=== PATIENT | female | born 1995 | race Caucasian/White ===

== ENCOUNTER 2017-12-19 05:46 | Emergency (ER) | payer OTHER ==
[~2017-12-19] VITALS: Ht 162.6 cm; Wt 57.8 kg
--- NOTE | 2017-12-19 06:23 | ED.ADGEN ---
Past History Past Medical History: No Pertinent History Past Medical History Patient on control. Mirena IUD Past Surgical History: No Surgical History Smoking: Non-smoker Alcohol Use: None Drug Use: None Adult General Chief Complaint Chief Complaint Post tonsillectomy bleeding HPI HPI The patient had tonsillectomy in [place] 12/08/[address] Veronica. Since then she was well until 5AM when she had onset of posterior throat bleeding. She denies hematemesis, though she's been spitting up a lot of blood. No light headedness or or SOB. Review of Systems Review of Systems Constitutional: Denies fever or chills Eyes: Denies change in visual acuity, redness, or eye pain HENT: Denies nasal congestion or sore throat. With posterior pharyngeal bleeding , spitting up blood. no sore throat. no stridor or breathing difficulty. Respiratory: Denies cough or shortness of breath Cardiovascular: Denies chest pain or palpitations GI: Denies abdominal pain, nausea, vomiting, bloody stools or diarrhea : Denies dysuria or hematuria Musculoskeletal: Denies back pain or joint pain Integument: Denies rash or skin lesions Neurologic: Denies headache, focal weakness or sensory changes Endocrine: Denies polyuria or polydipsia All other systems were reviewed and found to be within normal limits, except as documented in this note. Current Medications Current Medications Current Medications Medications (Trade) Dose Ordered Sig/Michel Start Time Stop Time Status Last Admin Dose Admin Cocaine HCl 8 ml 1X ONCE 12/19/17 06:45 12/19/17 06:52 DC 12/19/17 06:51 8 ML Ondansetron HCl (Zofran) 4 mg 1X ONCE 12/19/17 07:45 12/19/17 07:46 12/19/17 07:26 4 MG Sodium Chloride 1,000 ml @ 1,000 mls/hr 1X ONCE 12/19/17 07:15 12/19/17 08:14 12/19/17 07:26 1,000 MLS/HR Tranexamic Acid (Cyklokapron) 1,000 mg 1X ONCE 12/19/17 07:30 12/19/17 07:31 12/19/17 07:26 1,000 MG Tranexamic Acid 1000 mg/Sodium Chloride 260 ml @ 0 mls/hr 1X ONCE 12/20/17 07:45 7/30/18 07:46 UNV Allergies Allergies Allergies Coded Allergies Type Severity Reaction Last Updated Verified No Known Drug Allergies 12/19/17 No Physical Exam Physical Exam Constitutional: Well developed, well nourished, no acute distress, non-toxic appearance. HENT: Normocephalic, atraumatic, bilateral external ears normal, oropharynx with moderate bright red blood, left tonsillar crypt with fresh clot and bright red blood seen, no jefry hemorrhage seen, Right tonsillar crypt with good granulation tissue, no clot, healing well, no oral exudates, nose normal. Eyes: PERRLA, EOMI, conjunctiva normal, no discharge. Neck: Normal range of motion, no tenderness, supple, no stridor. Cardiovascular:Heart rate regular rhythm, no murmur Lungs & Thorax: Bilateral breath sounds clear to auscultation Abdomen: Bowel sounds normal, soft, no tenderness, no masses, no pulsatile masses. Skin: Warm, dry, no erythema, no rash. Back: No tenderness, no CVA tenderness. Extremities: No tenderness, no cyanosis, no clubbing, ROM intact, no edema. Neurologic: Alert and oriented X 3, normal motor function, normal sensory function, no focal deficits noted. Psychologic: Affect normal, judgement normal, mood normal. Current Patient Data Vital Signs Vital Signs Date Time Temp Pulse Resp B/P (MAP) Pulse Ox O2 Delivery O2 Flow Rate FiO2 12/19/17 06:33 98.3 78 20 115/65 (82) 100 Room Air Lab Results Laboratory Tests Test 12/19/17 06:25 White Blood Count 5.1 x10^3/uL (4.0-11.0) Red Blood Count 4.69 x10^6/uL (3.50-5.40) Hemoglobin 14.2 g/dL (12.0-15.5) Hematocrit 42.0 % (36.0-47.0) Mean Corpuscular Volume 90 fL (79-100) Mean Corpuscular Hemoglobin 30 pg (25-35) Mean Corpuscular Hemoglobin Concent 34 g/dL (31-37) Red Cell Distribution Width 13.8 % (11.5-14.5) Platelet Count 210 x10^3/uL (140-400) Neutrophils (%) (Auto) 38 % (31-73) Lymphocytes (%) (Auto) 52 % (24-48) H Monocytes (%) (Auto) 7 % (0-9) Eosinophils (%) (Auto) 2 % (0-3) Basophils (%) (Auto) 1 % (0-3) Neutrophils # (Auto) 1.9 x10^3uL (1.8-7.7) Lymphocytes # (Auto) 2.6 x10^3/uL (1.0-4.8) Monocytes # (Auto) 0.4 x10^3/uL (0.0-1.1) Eosinophils # (Auto) 0.1 x10^3/uL (0.0-0.7) Basophils # (Auto) 0.0 x10^3/uL (0.0-0.2) Prothrombin Time 10.2 SEC (9.4-11.4) Prothrombin Time INR 1.0 (0.9-1.1) PTT 27 SEC (23-33) Sodium Level 138 mmol/L (136-145) Potassium Level 4.1 mmol/L (3.5-5.1) Chloride Level 102 mmol/L (98-107) Carbon Dioxide Level 30 mmol/L (21-32) Anion Gap 6 (6-14) Blood Urea Nitrogen 13 mg/dL (7-20) Creatinine 0.8 mg/dL (0.6-1.0) Estimated GFR (Cockcroft-Gault) 89.7 Glucose Level 89 mg/dL (70-99) Calcium Level 9.1 mg/dL (8.5-10.1) Serum Test, Qualitative Negative (NEG) Laboratory Tests Test 12/19/17 06:25 White Blood Count 5.1 x10^3/uL Red Blood Count 4.69 x10^6/uL Hemoglobin 14.2 g/dL Hematocrit 42.0 % Mean Corpuscular Volume 90 fL Mean Corpuscular Hemoglobin 30 pg Mean Corpuscular Hemoglobin Concent 34 g/dL Red Cell Distribution Width 13.8 % Platelet Count 210 x10^3/uL Neutrophils (%) (Auto) 38 % Lymphocytes (%) (Auto) 52 % Monocytes (%) (Auto) 7 % Eosinophils (%) (Auto) 2 % Basophils (%) (Auto) 1 % Neutrophils # (Auto) 1.9 x10^3uL Lymphocytes # (Auto) 2.6 x10^3/uL Monocytes # (Auto) 0.4 x10^3/uL Eosinophils # (Auto) 0.1 x10^3/uL Basophils # (Auto) 0.0 x10^3/uL Prothrombin Time 10.2 SEC Prothromb Time International Ratio 1.0 Activated Partial Thromboplast Time 27 SEC Sodium Level 138 mmol/L Potassium Level 4.1 mmol/L Chloride Level 102 mmol/L Carbon Dioxide Level 30 mmol/L Anion Gap 6 Blood Urea Nitrogen 13 mg/dL Creatinine 0.8 mg/dL Estimated GFR (Cockcroft-Gault) 89.7 Glucose Level 89 mg/dL Calcium Level 9.1 mg/dL Serum Test, Qualitative Negative Current Medications Medications (Trade) Dose Ordered Sig/Michel Route PRN Reason Start Time Stop Time Status Last Admin Dose Admin Cocaine HCl 8 ml 1X ONCE TP 12/19/17 06:45 12/19/17 06:52 DC 12/19/17 06:51 8 ML Tranexamic Acid 1000 mg/Sodium Chloride 260 ml @ 260 mls/hr ONCE ONCE IV 12/19/17 07:00 12/19/17 07:00 DC Tranexamic Acid 1000 mg/Sodium Chloride 260 ml @ 260 mls/hr 1X STAT IV 12/19/17 06:37 12/19/17 07:36 Tranexamic Acid 1000 mg/Sodium Chloride 260 ml @ 0 mls/hr 1X ONCE IV 12/20/17 07:45 12/20/17 07:46 UNV Ondansetron HCl (Zofran) 4 mg 1X ONCE IV 12/19/17 07:45 12/19/17 07:46 12/19/17 07:26 4 MG Sodium Chloride 1,000 ml @ 1,000 mls/hr 1X ONCE IV 12/19/17 07:15 12/19/17 08:14 12/19/17 07:26 1,000 MLS/HR Tranexamic Acid (Cyklokapron) 1,000 mg 1X ONCE IV 12/19/17 07:30 12/19/17 07:31 12/19/17 07:26 1,000 MG EKG EKG [] Radiology/Procedures Radiology/Procedures [] Course & Med Decision Making Course & Med Decision Making The patient presents with post tonsillectomy bleeding DDx- hemorrhagic shock, amenia, coagulopathy 06:[address] Connolly who recommends transfer to [facility]. Discussed TXA and Dr. Connolly and recommends holding TXA. 06:36 Patient is hemorrhaging more. Jefry hemorrhage form left tonsillar crypt seen. Will give TXA and cocaine with direct pressure. 07:10 Patient received TXA 1gm over 10 minutes. Left tonsillar crypt bleeding identified. Cade swab soaked with cocaine was applied 3 times with direct pressure with blanching of left tonsillar crypt. Hemorrhaging stopped. 07:[address] Hiram Siegel ED attending who accepts patient transfer. Final Impression Final Impression Clinical Impression Post Tonsillectomy Hemorrhage Dragon Disclaimer Dragon Disclaimer This electronic medical record was generated, in whole or in part, using a voice recognition dictation system. Departure Departure: Impression: Primary Impression: Post-tonsillectomy hemorrhage Disposition: 05 XFER OTHER (Transfer to [facility] ED-Dr. Hiram Siegel accepting) Condition: STABLE Critical Care Note Total Time (mins): 30 Comments Patient received emergent bedside treatment for post tonsillectomy hemorrhage Hemorrhage from left tonsillar crypt was identified. Cade swabs soaked in cocaine was applied with direct pressure. Three swabs were used over 15 minutes with control of hemorrhage. About 4mg of liquid cocaine used. Patient also received TXA 1gm over 10 minutes, then started on TXA drip 1gm over 8 hours. INEZ JEAN-BAPTISTE MD Dec 19, 2017 06:23
[2017-12-19] MEDS ORDERED: TRANEXAMIC ACID 1,000 MG in IV NORMAL SALINE 250ML 250 ML IV STA (06:37)
[2017-12-19 06:45] LABS: BASO % 1 % (0-3); EOS # 0.1 x10^3/uL (0.0-0.7); EOS % 2 % (0-3); HEMOGLOBIN 14.2 g/dL (12.0-15.5); LYMPH # 2.6 x10^3/uL (1.0-4.8); LYMPH % 52 % (24-48); MEAN CORPUSCULAR HEMOGLOBIN 30 pg (25-35); MEAN CORPUSCULAR HGB CONC 34 g/dL (31-37); MEAN CORPUSCULAR VOLUME 90 fL (79-100); MONO # 0.4 x10^3/uL (0.0-1.1); MONO % 7 % (0-9); NEUT # 1.9 x10^3uL (1.8-7.7); NEUT % 38 % (31-73); PLATELET COUNT 210 x10^3/uL (140-400); RED BLOOD COUNT 4.69 x10^6/uL (3.50-5.40); RED CELL DISTRIBUTION WIDTH 13.8 % (11.5-14.5); WHITE BLOOD COUNT 5.1 x10^3/uL (4.0-11.0)
[2017-12-19] MEDS ORDERED: COCAINE 4% TOPICAL SOLUTION TP ONE (06:45)
[2017-12-19 06:52] LABS: CALCIUM 9.1 mg/dL (8.5-10.1); CREATININE 0.8 mg/dL (0.6-1.0); GFR 89.7; POTASSIUM 4.1 mmol/L (3.5-5.1)
[2017-12-19 06:57] LABS: PREG TEST PT QUAL NEGATIVE (NEG)
[2017-12-19] MEDS ORDERED: TRANEXAMIC ACID 1,000 MG in IV NORMAL SALINE 250ML 250 ML IV ONE (07:00)
[2017-12-19] MEDS ORDERED: IV NORMAL SALINE 1,000ML 1,000 ML IV ONE (07:15)
[2017-12-19] MEDS ORDERED: TRANEXAMIC ACID 1,000 MG/10 ML VIAL. IV ONE (07:30)
[2017-12-19] MEDS ORDERED: ONDANSETRON PF 4 MG/2 ML VIAL. IV ONE (07:45)
[2017-12-19 07:54] VITALS: BP 118/78
[2017-12-20] MEDS ORDERED: TRANEXAMIC ACID 1,000 MG in IV NORMAL SALINE 250ML 250 ML IV ONE (07:45)
== END 2017-12-19 08:00 | disposition short-term general hospital (02) ==
LOC: ER 05:46
DX: J95.830 Postprocedural hemorrhage of a respiratory system organ or structure following a respiratory system procedure (principal); Z90.89 Acquired absence of other organs
CPT/HCPCS: 36415; 42960; 80048; 84703; 85025; 85384; 85610; 85730; 86850; 86900; 86901; 86920; 96374; 99291; J2405; J7050; J7030